=== PATIENT | male | born 1975 | race Caucasian/White ===

== ENCOUNTER 2021-06-11 12:11 | Emergency (ER) | payer OTHER ==
[~2021-06-11] VITALS: Ht 182.9 cm; Wt 108.9 kg
[2021-06-11 12:24] VITALS: BP 160/84
[2021-06-11] MEDS ORDERED: CEFUROXIME500 MG PO (15:12)
[2021-06-11] MEDS ORDERED: PERCOCET 5-3251 EACH PO (15:14)
[2021-06-11] MEDS ORDERED: PERCOCET PO (15:17)
== END 2021-06-11 15:18 | disposition home or self-care (01) ==
LOC: ER 12:11
DX: S62.633B Displaced fracture of distal phalanx of left middle finger, initial encounter for open fracture (principal); S61.211A Laceration without foreign body of left index finger without damage to nail, initial encounter; W23.0XXA Caught, crushed, jammed, or pinched between moving objects, initial encounter; Y93.89 Activity, other specified; Y92.89 Other specified places as the place of occurrence of the external cause; Y99.9 Unspecified external cause status